=== PATIENT | male | born 1985 | race Caucasian/White ===

== ENCOUNTER 2022-03-01 18:55 | Emergency (ER) | payer OTHER, SELFPAY ==
--- NOTE | 2022-03-01 19:01 | ED.URI ---
HPI - URI/Sore Throat General Chief Complaint: Upper Respiratory Infection Stated Complaint: Fever/Cough/Headache Time Seen by Provider: 03/01/22 19:21 Source: patient and RN notes reviewed Mode of arrival: ambulatory Limitations: no limitations History of Present Illness HPI Narrative: 36-year-old male presents with concern for 3-day history of cough, chest congestion, facial pain and pressure, sinus congestion, chills, ear pressure. He reports he is taken [id number] medicines without symptom relief. He denies shortness of breath fever, nausea, diarrhea MD elicited complaint: cough and nasal congestion Related Data Allergies Allergy/AdvReac Type Severity Reaction Status Date / Time No Known Allergies Allergy Verified 03/01/22 19:19 Review of Systems Review of Systems: CONSTITUTIONAL: Reports malaise, chills. Denies sweats, or fever. EYES: Denies visual changes, redness, or discharge. ENT: Reports rhinorrhea, congestion, sinus pain, otalgia CARDIOVASCULAR: Denies chest pain, palpitations, or edema. RESPIRATORY: Reports cough. Denies dyspnea. GASTROINTESTINAL: Denies abdominal pain, nausea, vomiting, diarrhea SKIN: Denies rash or itching. MUSCULOSKELETAL: Denies myalgia. NEUROLOGIC: Denies headache. All systems reviewed & are unremarkable except as noted in HPI and below [facility] Family History Family History (Updated 07/28/18 @ 10:53 by DOCTOR UNKNOWN) Other Family history of allergic disorder Family history of cardiovascular disease Family history of malignant neoplasm Social History Social History Smoking status: Former smoker Smoking end date: 10/19/14 Alcohol intake: current Comments At time of signature, agree with nursing past medical, surgical, social and family history. There is no relevant family history pertinent to the presenting complaint Exam Narrative: GENERAL: Nontoxic appearing and in no acute distress. HEAD: Normocephalic EYES: PERRLA, conjunctivae clear ENT: Nares clear, turbinates edematous and erythematous, clear discharge. Mucous membranes moist. TM pearly chopra with dull light reflex on the left, sharp light reflex, right; no tragal tenderness. Oropharynx not erythematous without lesions. Tonsils not enlarged and without exudate, no drooling, no hoarseness, no trismus, uvula midline. NECK: Supple. No lymphadenopathy CHEST: Clear to auscultation, breath sounds equal. No wheezing, rhonchi, rales, or stridor. No respiratory distress, speaks in full sentences. HEART: Regular rate and rhythm. No murmur heard. SKIN: Warm, dry, no rash. NEURO: Alert and oriented x3. PSYCH: Normal mood and affect Course Course Emergency Course: Patient is aware of diagnosis, understands and agrees to treatment plan. Anticipatory guidance given. Patient agrees to follow-up as directed and is aware of reasons to seek care at the emergency department. Portions of this record may have been created with voice recognition software Level of Care: Express Care Visit Vital Signs Vital signs: Reviewed. MDM - URI/Sore Throat MDM Narrative Medical decision making narrative: Differential diagnosis considered: Mac virus, strep pharyngitis, allergic rhinitis, upper respiratory tract infection, sinusitis, rhinosinusitis, nasopharyngitis. viral pharyngitis, otitis media, otitis externa, pneumonia, bronchitis, viral cough syndrome, viral syndrome, and influenza. Exam findings show no acute concerns or changes; patient is non-toxic appearing and is in no distress. Patient is appropriate for outpatient treatment and follow-up. Lab Data Attestation: I reviewed the patient's lab results. Critical Care Time Critical Care Time Critical Care Time: No Discharge Plan Discharge Clinical Impression: Influenza A, Acute dysfunction of left eustachian tube Patient Disposition: Home, Self-Care Condition: Stable Instructions: Influenza (ED) Additional Instructions: Viral illness may last between 7-21 day
[2022-03-01 19:05] VITALS: BP 130/75; PULSE 82; RESP 20; TEMP 36.5; O2SAT 99
== END 2022-03-01 19:32 | disposition home or self-care (01) ==
PROVIDERS: Emergency Provider Nurse Practitioner
DX: R50.9 Fever, unspecified (principal); J10.1 Influenza due to other identified influenza virus with other respiratory manifestations; H69.92 Unspecified Eustachian tube disorder, left ear; Z87.891 Personal history of nicotine dependence
CPT/HCPCS: 87426; 87804; 99203; C9803; G0463

== ENCOUNTER 2022-03-28 12:39 | Emergency (ER) | payer OTHER, SELFPAY ==
[2022-03-28 12:50] VITALS: BP 132/78; PULSE 88; RESP 18; TEMP 37.3; O2SAT 99
--- NOTE | 2022-03-28 13:25 | ED.URI ---
HPI - URI/Sore Throat General Chief Complaint: Upper Respiratory Infection Stated Complaint: sore throat fever Source: patient and RN notes reviewed Mode of arrival: ambulatory Limitations: no limitations History of Present Illness HPI Narrative: 36 y/o male presented for complaint of sore throat, fever and body aches since yesterday. Today's temperature was 102.3. He has been taking ibuprofen and Tylenol as needed. Endorses 1 month ago he was diagnosed with the flu and has been coughing intermittently since then. Recent travel to [place]. Denies sick contacts. He is not vaccinated for COVID or flu. If he has taken 7 negative home COVID test this week. MD elicited complaint: cough Related Data Allergies Allergy/AdvReac Type Severity Reaction Status Date / Time No Known Allergies Allergy Verified 03/28/22 12:59 Review of Systems Review of Systems: CONSTITUTIONAL: Endorses malaise, chills, sweats, fever EYES: Denies visual changes, redness, or discharge ENT: Reports rhinorrhea, congestion, sore throat CARDIOVASCULAR: Denies chest pain, palpitations, edema RESPIRATORY: Reports cough, post nasal drainage. Denies dyspnea MUSCULOSKELETAL: Endorses myalgia [facility] Family History Family History Other Family history of allergic disorder Family history of cardiovascular disease Family history of malignant neoplasm Social History Social History Smoking status: Former smoker Smoking end date: 10/19/14 Alcohol intake: current Exam Narrative: GENERAL: Ill-appearing, nontoxic no acute distress. EYES: PERRLA, conjunctivae clear ENT: Mucous membranes moist. TM pearly chopra with normal light reflex bilaterally; no tragal tenderness. Oropharynx erythematous with tonsillar swelling 2+, multiple areas of white exudate, no drooling, no hoarseness, no trismus, uvula midline. No tripod positioning, muffled voice, soft palate or pharyngeal wall bulging NECK: Supple. No lymphadenopathy CHEST: Clear to auscultation, breath sounds equal. HEART: Regular rate and rhythm. No murmur heard. SKIN: Warm, dry, no rash. Course Course Emergency Course: Patient is aware of diagnosis, understands and agrees to treatment plan. Anticipatory guidance given. Patient agrees to follow-up as directed and is aware of reasons to seek care at the emergency department. Portions of this record may have been created with voice recognition software Level of Care: Express Care Visit Vital Signs Vital signs: Vital Signs Temperature 99.2 F 03/28/22 12:50 Pulse Rate 88 03/28/22 12:50 Respiratory Rate 18 03/28/22 12:50 Blood Pressure 132/78 03/28/22 12:50 Pulse Oximetry 99 03/28/22 12:50 Oxygen Delivery Room Air 03/28/22 12:50 Temperature 99.2 F 03/28/22 12:50 Pulse Rate 88 03/28/22 12:50 Respiratory Rate 18 03/28/22 12:50 Blood Pressure 132/78 03/28/22 12:50 Pulse Oximetry 99 03/28/22 12:50 Oxygen Delivery Room Air 03/28/22 12:50 reviewed MDM - URI/Sore Throat MDM Narrative Medical decision making narrative: Strep, mono, and COVID-negative. Given his physical exam, he will be treated with an antibiotic at this time for strep. He is advised on supportive treatment as well. He is stable and appropriate for outpatient treatment follow-up. verbalizes understanding Differential Diagnosis Differential diagnosis: Likely upper respiratory infection, sinusitis and viral infection Lab Data Labs: Strep Screen Presumptive Negative *(Reference Range: Negative)* Dawson Screen Negative (Reference Range: Negative) Discharge Plan Discharge Clinical Impression: Pharyngitis Qualifiers: Pharyngitis/tonsillitis etiology: unspecified etio
== END 2022-03-28 13:55 | disposition home or self-care (01) ==
PROVIDERS: Emergency Provider Nurse Practitioner Family
DX: J02.9 Acute pharyngitis, unspecified (principal); Z20.822 Contact with and (suspected) exposure to COVID-19; Z87.891 Personal history of nicotine dependence; Z28.310 Unvaccinated for COVID-19
CPT/HCPCS: 36416; 86308; 87081; 87426; 87880; 99213; C9803; G0463

== ENCOUNTER 2023-03-09 15:10 | Outpatient (CLI) | payer BC, SELFPAY ==
--- NOTE | ~2023-03-09 | XR_ITS ---
XR abdomen/kub 1V 03/09/2023 15:18 INDICATION: Constipation. Abdomen pain. TECHNIQUE: KUB COMPARISON: CT dated 06/19/2016 FINDINGS: Bowel gas pattern is normal. There is no evidence of free air, mass, organomegaly, ascites or obstruction. No abnormal calculi are seen. There are pelvic phleboliths. The bones appear intact . IMPRESSION: 1: No acute abdominal abnormality identified. Reviewed, dictated and finalized at location L.
== END 2023-03-09 15:11 | disposition home or self-care (01) ==
LOC: ANHBWCIMG 15:12
PROVIDERS: PCP Family Medicine; Visit Provider Nurse Practitioner
DX: K59.00 Constipation, unspecified (principal); K58.9 Irritable bowel syndrome, unspecified
CPT/HCPCS: 74018

== ENCOUNTER 2023-03-12 08:18 | Outpatient (CLI) | payer BC, SELFPAY ==
[2023-03-12 18:46] LABS: Alanine Aminotransferase 46 U/L (6-50); Albumin Level 4.8 g/dL (3.5-5.1); Alkaline Phosphatase 58 U/L (38-126); Anion Gap 9 mmol/L (8-16); Aspartate Amino Transferase 82 U/L (17-59); Blood Urea Nitrogen 13 mg/dL (9-20); Calcium 9.4 mg/dL (8.4-10.2); Carbon Dioxide 29 mmol/L (22-30); Chloride 102 mmol/L (98-107); Cholesterol 211 mg/dL (0-200); Estimated Glomerular Filt Rate > 60; Glucose 98 mg/dL (65-110); HDL Direct 51 mg/dL; Potassium 4.2 mmol/L (3.4-5.0); Sodium 140 mmol/L (137-145); Triglycerides 94 mg/dL (<150)
[2023-03-12 18:56] LABS: LDL Cholesterol Direct 123 mg/dL
[2023-03-12 19:21] LABS: Basophils Percent Auto 0.7 % (0.2-1.2); Eosinophils Absolute Auto 0.1 K/mm3 (0-0.3); Eosinophils Percent Auto 1.3 % (0-4.4); Hematocrit 50.3 % (42.0-52.0); Hemoglobin 16.5 g/dL (14.0-18.0); Immature Granulocyte Absolute 0.01 K/mm3 (0.00-0.031); Immature Granulocyte Percent A 0.2 % (0-0.5); Lymphocytes Absolute Auto 2.16 K/mm3 (0.9-3.2); Lymphocytes Percent Auto 46.9 % (18.3-44.2); Mean Corpuscular HGB Conc 32.8 g/dl (32-36); Mean Corpuscular Hemoglobin 28.2 pg (26-34); Mean Corpuscular Volume 85.8 fl (80-100); Mean Platelet Volume 9.8 fl (7.4-10.4); Monocytes Absolute Auto 0.2 K/mm3 (0.1-0.6); Monocytes Percent Auto 5.2 % (2.6-8.5); Neutrophils Absolute Auto 2.1 K/mm3 (1.3-6.7); Neutrophils Percent Auto 45.7 % (45.5-73.1); Platelet Count Result 301 k/mm3 (150-375); Red Blood Count 5.86 M/mm3 (4.6-6.20); Red Cell Distribution Width 13.2 % (11.5-14.5); White Blood Count 4.6 K/mm3 (4.5-10.0)
[2023-03-12 19:41] LABS: Appearance Urine Clear (Clear); Bacteria Urine Rare /hpf; Bilirubin Urine Negative (Negative); Blood Urine Negative (Negative); Color Urine Dark Yellow (Yellow); Glucose Urine UA Negative (Negative); Ketones Urine Trace mg/dL (Negative); Leukocyte Esterase Ur Negative LEU/UL (NEGATIVE); Mucus Urine Present /lpf; Need Manual Microscopic Reviewed; Nitrate Urine Negative (Negative); Non Pathogenic Casts 0-2; Protein Urine Trace mg/dL (Negative); RBC Urine 0-2 /hpf (0-2); Specific Grav Ur 1.024 (1.001-1.035); Squamous Epithelial Cell Urine None seen /hpf (Few); WBC Urine 0-5 /hpf (0-3)
[2023-03-12 19:43] LABS: Add Urine Microscopic? YES
[2023-03-17 19:48] LABS: PSA, Free 0.47 ng/mL; PSA, Total 1.1 ng/mL (<=4.0)
== END 2023-03-12 08:19 | disposition home or self-care (01) ==
LOC: ANHBWCLAB 08:19
PROVIDERS: PCP Family Medicine; Visit Provider Nurse Practitioner
DX: Z00.00 Encounter for general adult medical examination without abnormal findings (principal); K21.9 Gastro-esophageal reflux disease without esophagitis; K58.9 Irritable bowel syndrome, unspecified; K59.00 Constipation, unspecified; R35.0 Frequency of micturition; R53.83 Other fatigue; R51.9 Headache, unspecified
CPT/HCPCS: 36415; 80053; 80061; 81001; 84153; 84154; 84443; 85025

== ENCOUNTER 2023-04-10 00:14 | Day surgery (SDC) | payer BC, SELFPAY ==
[2023-04-03 13:51] VITALS: BMI 26.4
--- NOTE | 2023-04-09 12:27 | P.PNAN_ITS ---
Anes - Initial Pre Proc Eval Procedure: Operation Date: 04/10/23 13:00 Proposed Procedures p Esophagogastroduodenoscopy - Gerber Kellogg MD Date/Time: 04/09/23 12:27 Surgeon: Gerber Kellogg MD Pre Op Diagnosis: abdominal distension, GERD Patient Data Age: 37 Gender: M Height: 1.75 m Weight: 81 kg Allergies Allergy/AdvReac Type Severity Reaction Status Date / Time No Known Allergies Allergy Verified 04/10/23 11:51 Home Medications Medication Instructions Recorded Confirmed Type pantoprazole 40 mg tablet,delayed 40 mg PO QAM #30 tabs 03/25/23 04/03/23 Rx release Alpha Brain 1 tablet PO DAILY 04/03/23 04/03/23 History polyethylene glycol 3350 17 17 g PO DAILY 04/03/23 04/03/23 History gram/dose oral powder (Miralax) tumeric 100 mg-emily 150 mg-olive 1 cap PO DAILY 04/03/23 04/03/23 History 50 mg-oreg 150 mg-caprylate capsule Patient hx anesthesia problems: none Family hx anesthesia problems: none Results Review: All pre-operative results and documents have been reviewed as part of the pre- operative evaluation. PMFSH Past Medical History Medical History Abdominal bloating Anxiety Globus sensation Headache IBS (irritable bowel syndrome) RLQ discomfort Tobacco consumption Surgical History Surgical History History of appendectomy Family History Family History Grandparent Heart disease Leukemia Other Family history of allergic disorder Family history of cardiovascular disease Family history of malignant neoplasm Social History Social History Smoking status: Current every day smoker Tobacco type: e-cigarettes/vaping Smoking end date: 10/19/14 Alcohol intake: current Alcohol use details: monthly Substance use: current Substance use type: marijuana Other substance usage details: Nightly Lack of Transportation: No Lack of Food: Never True Current Housing: I Have Housing Concerned About Future Housing: No Difficulty Paying Gas/Electric Bills: No Difficulty Paying for Meds: No Currently Unemployed: No Education: High School Diploma/GED Difficulty w/ Childcare or Family Care: No Living arrangements: with family 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[employer] Gender identity (if verbalized by the patient): Male Spiritual care concerns: No Agree to blood products: Yes Anes - Eval Final PreProcedure Day of Procedure 04/09/23 12:27 Patient weight: overweight Heart: regular rate and rhythm Lungs: clear to auscultation Airway: Mallampati scale class II Neurological: alert and oriented Last oral intake: >/= 8 hours ASA classification: II Emergent: no Anesthetic plan: proceed Anesthesia type and monitoring: general GIVS and standard monitoring Results Review: All pre-operative results and documents have been reviewed as part of the pre- operative evaluation. Informed Consent: The patient's anesthetic plan and its attendant risks and benefits were discussed with the patient/family/POA. Questions were solicited and answers provided to the satisfaction of the patient/family/POA.
--- NOTE | 2023-04-09 19:59 | PM.HPGS ---
History of Present Illness History of Present Illness Consent: Risks, benefits, and alternatives have been discussed and questions answered. Patient agrees to proceed with procedure. Chief complaint: abdominal distension, GERD Narrative: Tal Dillon is a 37 year old male with several ssues. Office visit summary is: Has midabdominal bloating usually worse by the evening, has been ongoing for years but last several months has gotten worse. Taking omeprazole intermittently and when he takes this for a few weeks at a time, he think bloating may be better? He does have possible IBS as well which could be contributing and possible functional bloating component -Colonoscopy in 2017 was normal -CBC, CMP, TSH recently normal along with normal KUB -Will arrange and EGD with small bowel bx to rule out celiac, gastritis, pud, and EOE -We discussed GERD diet and stopping his caeffine supplements as that could be contributing along. We discussed smaller meals as well. Eating slow and avoid drinking through straws as that can contribute to bloating. Discussed smoking cessation as well in regards to bloating and even GERD. -Suggest Low Fodmap 4-6 weeks to identify triggers -will restart protonix 40 mg daily as well he actually did start pantoprazole and it has helped with heartburn but not the other symptoms began what bothers him the most is that sensation of bubbles in the stomach that he feels coming up towards his chest as well Review of Systems Review of Systems: All systems reviewed & are unremarkable except as noted in HPI and below PMFSH Past Medical History Medical History Abdominal bloating Anxiety Globus sensation Headache IBS (irritable bowel syndrome) RLQ discomfort Tobacco consumption Surgical History Surgical History History of appendectomy Family History Family History Grandparent Heart disease Leukemia Other Family history of allergic disorder Family history of cardiovascular disease Family history of malignant neoplasm Social History Social History Smoking status: Current every day smoker Tobacco type: e-cigarettes/vaping Smoking end date: 10/19/14 Alcohol intake: current Alcohol use details: monthly Substance use: current Substance use type: marijuana Other substance usage details: Nightly Lack of Transportation: No Lack of Food: Never True Current Housing: I Have Housing Concerned About Future Housing: No Difficulty Paying Gas/Electric Bills: No Difficulty Paying for Meds: No Currently Unemployed: No Education: High School Diploma/GED Difficulty w/ Childcare or Family Care: No Living arrangements: with family 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[employer] Gender identity (if verbalized by the patient): Male Spiritual care concerns: No Agree to blood products: Yes Meds Home Medications and Allergies Home Medications Medication Instructions Recorded Confirmed Type pantoprazole 40 mg tablet,delayed 40 mg PO QAM #30 tabs 03/25/23 04/03/23 Rx release Alpha Brain 1 tablet PO DAILY 04/03/23 04/03/23 History polyethylene glycol 3350 17 17 g PO DAILY 04/03/23 04/03/23 History gram/dose oral powder (Miralax) tumeric 100 mg-emily 150 mg-olive 1 cap PO DAILY 04/03/23 04/03/23 History 50 mg-oreg 150 mg-caprylate capsule Allergies Allergy/AdvReac Type Severity Reaction Status Date / Time No Known Allergies Allergy Verified 04/10/23 11:51 Exam Const: General: alert Orientation/consciousness: patient oriented x3 Resp: Auscultation: clear to auscultation bilaterally Cardio: Rhythm: regular rhythm GI: GI Palp: Yes Soft to palpation and No Tenderness to palpation present (GI) Neuro: General: patient oriented x3 Assessment and Plan Assess
[2023-04-10 11:52] VITALS: BP 111/73; PULSE 65; RESP 18; TEMP 36.4; O2SAT 100
[2023-04-10] MEDS: LACTATED RINGERS 1,000 ML 150 ML IV CONT (11:58)
[2023-04-10 13:09] VITALS: BP 98/61; PULSE 58; RESP 20; O2SAT 98
[2023-04-10 13:19] VITALS: BP 106/68; BP 109/76; PULSE 54; PULSE 64; RESP 15; RESP 20; O2SAT 100; O2SAT 98
== END 2023-04-10 13:38 | disposition home or self-care (01) ==
PROVIDERS: PCP Family Medicine; Visit Provider Internal Medicine Gastroenterology
PROC: 0DJ08ZZ Inspection of Upper Intestinal Tract, Via Natural or Artificial Opening Endoscopic (ICD-10-PCS; CPT 43235; principal; 2023-04-10 13:00)
DX: K21.9 Gastro-esophageal reflux disease without esophagitis (principal); F17.290 Nicotine dependence, other tobacco product, uncomplicated; F12.90 Cannabis use, unspecified, uncomplicated
CPT/HCPCS: 43239; 88305; J2704; J7120

== ENCOUNTER 2023-11-17 14:52 | Outpatient (CLI) | payer BC, SELFPAY ==
[2023-11-17 20:06] LABS: Alanine Aminotransferase 44 U/L (6-50); Albumin Level 4.8 g/dL (3.5-5.1); Alkaline Phosphatase 56 U/L (38-126); Aspartate Amino Transferase 43 U/L (17-59); Bilirubin,Total 0.7 mg/dL (0.2-1.3)
== END 2023-11-17 14:53 | disposition home or self-care (01) ==
LOC: ANHBWCLAB 14:54
PROVIDERS: PCP Family Medicine; Visit Provider Family Medicine
DX: R74.01 Elevation of levels of liver transaminase levels (principal); R14.0 Abdominal distension (gaseous); R53.83 Other fatigue; R09.89 Other specified symptoms and signs involving the circulatory and respiratory systems; K58.9 Irritable bowel syndrome, unspecified
CPT/HCPCS: 36415; 80076; 83013; 86003

== ENCOUNTER 2023-12-05 22:17 | Emergency (ER) | payer BC, SELFPAY ==
--- NOTE | ~2023-12-05 | XR_ITS ---
EXAMINATION: XR chest 2V DATE: 12/05/2023 22:40 INDICATION: Left-sided chest pain TECHNIQUE: PA and lateral views of the chest were obtained. COMPARISON: CT abdomen pelvis dated 06/19/2016 FINDINGS: The lungs are clear with no focal airspace opacities, pulmonary edema, pleural effusion or pneumothor ax. The cardiomediastinal silhouette is normal. Chronic mild anterior wedging of T11 and T12. IMPRESSION: 1. No acute cardiopulmonary disease. Reviewed, dictated and finalized at location A. NICAL PROJECT COORDINATOR
--- NOTE | 2023-12-05 22:18 | ECG_ITS ---
Measurements Intervals [place] Rate: 80 P: 37 OK: 142 QRS: 8 QRSD: 117 T: 5 QT: 342 QTc: 395 Interpretive Statements SINUS RHYTHM INCOMPLETE RIGHT BUNDLE BRANCH BLOCK [90+ ms QRS DURATION, TERMINAL R IN V1/V2, 40+ ms S IN I/aVL/V4/V5/V6] BORDERLINE ECG NO PREVIOUS ECG AVAILABLE FOR COMPARISON Electronically Signed On 12-06-2023 8:08:03 POLICY MANAGER by Andre Nur M.D.
[2023-12-05 22:20] VITALS: BP 138/101; PULSE 80; RESP 20; TEMP 36.3; O2SAT 100
[2023-12-05 22:37] LABS: Basophils Percent Auto 0.5 % (0.2-1.2); Eosinophils Absolute Auto 0.1 K/mm3 (0-0.3); Eosinophils Percent Auto 0.9 % (0-4.4); Hematocrit 49.9 % (42.0-52.0); Hemoglobin 16.9 g/dL (14.0-18.0); Immature Granulocyte Absolute 0.01 K/mm3 (0.00-0.031); Immature Granulocyte Percent A 0.2 % (0-0.5); Lymphocytes Absolute Auto 2.59 K/mm3 (0.9-3.2); Lymphocytes Percent Auto 40.3 % (18.3-44.2); Mean Corpuscular HGB Conc 33.9 g/dl (32-36); Mean Corpuscular Hemoglobin 28.2 pg (26-34); Mean Corpuscular Volume 83.3 fl (80-100); Mean Platelet Volume 9.5 fl (7.4-10.4); Monocytes Absolute Auto 0.4 K/mm3 (0.1-0.6); Monocytes Percent Auto 6.4 % (2.6-8.5); Neutrophils Absolute Auto 3.3 K/mm3 (1.3-6.7); Neutrophils Percent Auto 51.7 % (45.5-73.1); Platelet Count Result 287 k/mm3 (150-375); Red Blood Count 5.99 M/mm3 (4.6-6.20); Red Cell Distribution Width 12.7 % (11.5-14.5); White Blood Count 6.4 K/mm3 (4.5-10.0)
[2023-12-05 22:48] LABS: INR 0.9; Partial Thromboplastin Time 23.4 SECONDS (22.3-36.8); Prothrombin Time 12.8 Seconds (11.1-14.7)
[2023-12-05 22:57] LABS: Alanine Aminotransferase 68 U/L (6-50); Albumin Level 4.9 g/dL (3.5-5.1); Alkaline Phosphatase 52 U/L (38-126); Anion Gap 9 mmol/L (8-16); Aspartate Amino Transferase 42 U/L (17-59); Bilirubin,Total 0.6 mg/dL (0.2-1.3); Blood Urea Nitrogen 15 mg/dL (9-20); Calcium 9.8 mg/dL (8.4-10.2); Carbon Dioxide 27 mmol/L (22-30); Chloride 100 mmol/L (98-107); Estimated CRCL calculation 76 ml/min; Estimated Glomerular Filt Rate > 60; Glucose 92 mg/dL (65-110); Lipase 159 U/L (23-300); Potassium 3.8 mmol/L (3.4-5.0); Sodium 136 mmol/L (137-145)
[2023-12-05 23:08] LABS: Troponin I < 0.012 ng/mL (0.000-0.034)
[2023-12-05 23:15] LABS: Influenza A QL RT-PCR Negative (Negative); Influenza B QL RT-PCR Negative (Negative); RSV RNA, RT-PCR Negative (Negative); SARS-CoV-2 RNA PCR Negative (Negative)
[2023-12-06] VITALS: BP 102/64; PULSE 53; RESP 14; TEMP 36.8; O2SAT 99
--- NOTE | 2023-12-06 01:18 | ECG_ITS ---
Measurements Intervals [place] Rate: 49 P: 52 NE: 149 QRS: 18 QRSD: 112 T: 15 QT: 420 QTc: 380 Interpretive Statements SINUS BRADYCARDIA INCOMPLETE RIGHT BUNDLE BRANCH BLOCK [90+ ms QRS DURATION, TERMINAL R IN V1/V2, 40+ ms S IN I/aVL/V4/V5/V6] BORDERLINE ECG COMPARED TO ECG 12/05/2023 22:23:36 REDUCED HEART RATE, NO OTHER CHANGE Electronically Signed On 12-06-2023 8:09:33 PROVIDER SCRIBE by Andre Nur M.D.
[2023-12-06 01:22] VITALS: BP 112/75; PULSE 50; RESP 14; O2SAT 100; O2SAT 98
[2023-12-06 01:46] VITALS: BP 105/70; PULSE 50; RESP 14; O2SAT 98
[2023-12-06 01:48] LABS: Troponin I < 0.012 ng/mL (0.000-0.034)
--- NOTE | 2023-12-06 02:09 | ED.CHESTPAIN ---
HPI - Chest Pain General Chief Complaint: Chest Pain Stated Complaint: Chest pain, epigastric pain Time Seen by Provider: 12/06/23 00:53 History of Present Illness HPI narrative: 38-year-old male with history of s/p appendectomy, GERD, IBS, anxiety, abdominal bloating and globus sensation reports for evaluation for multiple medical complaints. Patient states around 9:00 p.m. this evening while he was lying on the couch, he began developing epigastric abdominal bloating and discomfort that radiated up into his chest and felt like ?my throat was closing?. He then developed numbness throughout both of his upper extremities, the back of his neck, and the bilateral sides of his face. Reports associated nausea without emesis. Denies shortness of breath, fevers, cough or congestion, vomiting or diarrhea. He he has been worked up by multiple specialists for abdominal bloating and has had 2 colonoscopies and an EGD without significant findings. States he normally takes probiotics but stopped taking them 5 days ago. Patient states his symptoms have all resolved except for his abdominal bloating which is unchanged from his baseline. He denies current chest pain or shortness of breath. Patient does state that he has had a lot of increased stressors at home. Related Data Home Medications Medication Instructions Recorded Confirmed Alpha Brain 1 tablet PO DAILY 04/03/23 04/03/23 polyethylene glycol 3350 17 17 g PO DAILY 04/03/23 04/03/23 gram/dose oral powder (Miralax) turmeric 100 mg-emily 150 1 cap PO DAILY 04/03/23 04/03/23 mg-olive 50 mg-oreg 150 mg-capryl capsule Allergies Allergy/AdvReac Type Severity Reaction Status Date / Time No Known Allergies Allergy Verified 12/05/23 22:23 Review of Systems Review of Systems: CONSTITUTIONAL: Denies fever, chills, or sweats. EYES: Denies visual changes, redness, or discharge. ENT: Denies rhinorrhea, congestion, sore throat, or otalgia. CARDIOVASCULAR: Denies chest pain, palpitations, or edema. RESPIRATORY: Denies cough or dyspnea. GASTROINTESTINAL: See HPI GENITOURINARY: Denies dysuria or hematuria. SKIN: Denies rash or itching. MUSCULOSKELETAL: Denies back pain, joint pain, or myalgia. NEUROLOGIC: See HPI PSYCHIATRIC: Denies anxiety or depression. [facility] Past Medical History Medical History Abdominal bloating Anxiety Globus sensation Headache IBS (irritable bowel syndrome) RLQ discomfort Tobacco consumption Surgical History Surgical History History of appendectomy Family History Family History Grandparent Heart disease Leukemia Other Family history of allergic disorder Family history of cardiovascular disease Family history of malignant neoplasm Social History Social History Smoking status: Current every day smoker Tobacco type: e-cigarettes/vaping Smoking end date: 10/19/14 Alcohol intake: current Alcohol use details: monthly Substance use: current Substance use type: marijuana Other substance usage details: Nightly Lack of Transportation: No Lack of Food: Never True Current Housing: I Have Housing Concerned About Future Housing: No Difficulty Paying Gas/Electric Bills: No Difficulty Paying for Meds: No Currently Unemployed: No Education: High School Diploma/GED Difficulty w/ Childcare or Family Care: No Living arrangements: with family 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 HEAD: Normocephalic, atraumatic. EYES: PERRLA and EOMI. ENT: Nares clear, no rhinorrhea or epistaxis. Mucous membranes moist.
[2023-12-06] MEDS: FAMOTIDINE 20 MG TABLET PO (02:38)
[2023-12-06] MEDS: BELLADONNA ALK/PHENOB ELIX 10 ML, MAG HYDROX/ALUMINUM HYD/SIMETH 30 ML, LIDOCAINE HCL 2... PO (02:38)
[2023-12-06 03:10] VITALS: BP 117/76; PULSE 51; RESP 21; O2SAT 99
[2023-12-06 03:12] LABS: Appearance Urine Clear (Clear); Bilirubin Urine Negative (Negative); Blood Urine Negative (Negative); Color Urine Yellow (Yellow); Glucose Urine UA Negative (Negative); Ketones Urine Negative (Negative); Leukocyte Esterase Ur Negative LEU/UL (Negative); Nitrate Urine Negative (Negative); Protein Urine Negative (Negative); Urobilinogen Urine 0.2 mg/dL (<2.0)
[2023-12-06 03:20] LABS: Add Urine Microscopic? NO
[2023-12-06 03:57] VITALS: BP 122/79; PULSE 55; RESP 18; O2SAT 96
== END 2023-12-06 04:01 | disposition home or self-care (01) ==
PROVIDERS: Student in an Organized Health Care Education/Training Program; Emergency Provider Physician Assistant; PCP Family Medicine
DX: R14.0 Abdominal distension (gaseous) (principal); R07.89 Other chest pain; R00.1 Bradycardia, unspecified; R74.01 Elevation of levels of liver transaminase levels; Z20.822 Contact with and (suspected) exposure to COVID-19; Z87.891 Personal history of nicotine dependence; I45.10 Unspecified right bundle-branch block
CPT/HCPCS: 36415; 71046; 80053; 81003; 83690; 84484; 85025; 85610; 85730; 87637; 93005; 99284; A9270

== ENCOUNTER 2024-03-15 09:57 | Emergency (ER) | payer BC, SELFPAY ==
--- NOTE | ~2024-03-15 | CT_ITS ---
CT of the Abdomen and Pelvis: Indication: Abdominal pain Technique: 2.5 mm axial scans were obtained through the abdomen and pelvis following intravenous adm inistration of 100 cc of Omnipaque 350. Dose reduction technique was used on this scan by utilizing a utomated exposure control and iterative reconstruction technique. The dose-length product (DLP) was 4 21.23 mGy-cm. Findings: Scans through the lung bases are unremarkable. The liver, spleen, pancreas, gallbladder, adrenals and kidneys are within normal limits. No evidence of aortic aneurysm. No lymphadenopathy. No bowel obstruction or bowel wall thickening. There is no evidence to suggest acute appendicitis. Images through the pelvis were performed. Urinary bladder unremarkable. No pelvic mass seen. No ascit es. Impression: No significant abnormalities seen. Reviewed, dictated and finalized at location . Impression: No significant abnormalities seen.
[2024-03-15 10:02] VITALS: BP 122/76; PULSE 75; RESP 16; TEMP 36.6; O2SAT 100
[2024-03-15 10:31] LABS: Basophils Absolute Auto 0.1 K/mm3 (0.0-0.1); Basophils Percent Auto 1.1 % (0.2-1.2); Eosinophils Absolute Auto 0.1 K/mm3 (0-0.3); Eosinophils Percent Auto 1.4 % (0-4.4); Hematocrit 50.2 % (42.0-52.0); Immature Granulocyte Absolute 0.01 K/mm3 (0.00-0.031); Immature Granulocyte Percent A 0.2 % (0-0.5); Lymphocytes Absolute Auto 2.28 K/mm3 (0.9-3.2); Lymphocytes Percent Auto 51.7 % (18.3-44.2); Mean Corpuscular HGB Conc 33.9 g/dl (32-36); Mean Corpuscular Hemoglobin 28.8 pg (26-34); Mean Corpuscular Volume 85.1 fl (80-100); Mean Platelet Volume 9.3 fl (7.4-10.4); Monocytes Absolute Auto 0.2 K/mm3 (0.1-0.6); Monocytes Percent Auto 5.4 % (2.6-8.5); Neutrophils Absolute Auto 1.8 K/mm3 (1.3-6.7); Neutrophils Percent Auto 40.2 % (45.5-73.1); Platelet Count Result 280 k/mm3 (150-375); Red Cell Distribution Width 12.7 % (11.5-14.5); White Blood Count 4.4 K/mm3 (4.5-10.0)
[2024-03-15 10:34] LABS: Appearance Urine Clear (Clear); Bilirubin Urine Negative (Negative); Blood Urine Negative (Negative); Color Urine Yellow (Yellow); Glucose Urine UA Negative (Negative); Ketones Urine Negative (Negative); Leukocyte Esterase Ur Negative LEU/UL (Negative); Nitrate Urine Negative (Negative); Protein Urine Negative (Negative); Urobilinogen Urine 0.2 mg/dL (<2.0); pH Urine 7.5 (5.0-9.0)
[2024-03-15 10:45] LABS: Add Urine Microscopic? NO
[2024-03-15 10:48] LABS: Alanine Aminotransferase 60 U/L (6-50); Alkaline Phosphatase 51 U/L (38-126); Anion Gap 5 mmol/L (4-12); Aspartate Amino Transferase 34 U/L (17-59); Blood Urea Nitrogen 17 mg/dL (9-20); Calcium 9.7 mg/dL (8.4-10.2); Carbon Dioxide 27 mmol/L (22-30); Chloride 106 mmol/L (98-107); Estimated Glomerular Filt Rate > 60; Glucose 95 mg/dL (65-110); Lipase 108 U/L (23-300); Potassium 4.7 mmol/L (3.4-5.0); Sodium 138 mmol/L (137-145)
[2024-03-15 12:01] VITALS: BP 109/81; PULSE 67; RESP 15; O2SAT 100
--- NOTE | 2024-03-15 13:56 | ED.ABDPAIN ---
HPI - Abdominal Pain General Chief Complaint: Abdominal Pain Stated Complaint: abd pain, back pain, weakness Time Seen by Provider: 03/15/24 11:17 History of Present Illness HPI narrative: 38-year-old male presents to the emergency department for evaluation suspected constipation and increased generalized weakness. patient reports he does have prior history of abdominal pain and has had multiple GI scopes previously. Patient does admit to some THC use Related Data Home Medications Medication Instructions Recorded Confirmed polyethylene glycol 3350 17 17 g PO DAILY 04/03/23 04/03/23 gram/dose oral powder (Miralax) turmeric 100 mg-emily 150 1 cap PO DAILY 04/03/23 04/03/23 mg-olive 50 mg-oreg 150 mg-capryl capsule Allergies Allergy/AdvReac Type Severity Reaction Status Date / Time No Known Allergies Allergy Verified 03/15/24 09:57 Review of Systems Review of Systems: All systems reviewed & are unremarkable except as noted in HPI and below PMFSH Past Medical History Medical History Abdominal bloating Anxiety Globus sensation Headache IBS (irritable bowel syndrome) RLQ discomfort Tobacco consumption Surgical History Surgical History History of appendectomy Family History Family History Grandparent Heart disease Leukemia Other Family history of allergic disorder Family history of cardiovascular disease Family history of malignant neoplasm Social History Social History Smoking status: Current every day smoker Tobacco type: e-cigarettes/vaping Smoking end date: 10/19/14 Alcohol intake: current Alcohol use details: monthly Substance use: current Substance use type: marijuana Other substance usage details: Nightly Lack of Transportation: No Lack of Food: Never True Current Housing: I Have Housing Concerned About Future Housing: No Difficulty Paying Gas/Electric Bills: No Difficulty Paying for Meds: No Currently Unemployed: No Education: High School Diploma/GED Difficulty w/ Childcare or Family Care: No Living arrangements: with family 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 HEAD: normocephalic, atraumatic. EYES: PERRLA/EOMI, conjunctivae clear. NOSE: Normal no drainage EARS:TMS clear with good light reflex. THROAT: Pharynx clear, no exudate. NECK: Supple. No adenopathy, no masses. RESPIRATORY: Airway patent, respirations nonlabored. Clear to auscultation bilaterally, no rales, rhonchi, wheezing. CARDIOVASCULAR: Regular rate and rhythm without murmurs rubs or gallops. ABDOMINAL: Lower abdominal tenderness to palpation MUSCULOSKELETAL: Moves all extremities. Strength/ROM intact, No edema, No calf tenderness. NEURO: Alert. Cranial nerves II through XII intact. grossly intact SKIN: Warm, dry. Normal Color PSYCHIATRIC: Normal affect/mood. Course Vital Signs Vital signs: Vital Signs Temperature 97.8 F 03/15/24 10:02 Pulse Rate 75 03/15/24 10:02 Respiratory Rate 16 03/15/24 10:02 Blood Pressure 122/76 03/15/24 10:02 Pulse Oximetry 100 03/15/24 10:02 Oxygen Delivery Room Air 03/15/24 10:02 Temperature 97.8 F 03/15/24 15:19 Pulse Rate 61 03/15/24 15:19 Respiratory Rate 15 03/15/24 15:19 Blood Pressure 120/71 03/15/24 15:19 Pulse Oximetry 99 03/15/24 15:19 Oxygen Delivery Room Air 03/15/24 10:02 MDM - Abdominal Pain MDM Narrative Medical decision making narrative: 38-year-old male presents emergency department for evaluation of increased generalized weakness and suspected constipation. Patien
[2024-03-15] MEDS: KETOROLAC 15 MG/ML VIAL (*BKC) IV PUSH (15:11)
[2024-03-15] MEDS: DICYCLOMINE HCL INJ 20 MG/2 ML VIAL IM (15:15)
[2024-03-15 15:19] VITALS: BP 120/71; PULSE 61; RESP 15; TEMP 36.6; O2SAT 99
== END 2024-03-15 15:20 | disposition home or self-care (01) ==
PROVIDERS: Emergency Provider Emergency Medicine; PCP Family Medicine
DX: R10.9 Unspecified abdominal pain (principal); K58.9 Irritable bowel syndrome, unspecified; Z87.891 Personal history of nicotine dependence; Z79.899 Other long term (current) drug therapy
CPT/HCPCS: 36415; 74177; 80053; 81003; 83690; 85025; 96372; 96374; 99284; J0500; J1885; Q9967

== ENCOUNTER 2024-05-16 07:35 | Outpatient (CLI) | payer BC, SELFPAY ==
[2024-05-16 18:46] LABS: Hematocrit 48.2 % (42.0-52.0); Mean Corpuscular HGB Conc 33.2 g/dl (32-36); Mean Corpuscular Hemoglobin 29.2 pg (26-34); Mean Platelet Volume 10.8 fl (7.4-10.4); Platelet Count Result 307 k/mm3 (150-375); Red Blood Count 5.48 M/mm3 (4.6-6.20); Red Cell Distribution Width 13.5 % (11.5-14.5); White Blood Count 4.7 K/mm3 (4.5-10.0)
[2024-05-16 19:01] LABS: Cholesterol 215 mg/dL (0-200); HDL Direct 58 mg/dL; Triglycerides 87 mg/dL (<150)
[2024-05-16 19:11] LABS: LDL Cholesterol Direct 110 mg/dL
[2024-05-16 19:24] LABS: Vitamin D 25 Hydroxy 36.8 ng/mL
== END 2024-05-16 07:36 | disposition home or self-care (01) ==
LOC: ANHBWCLAB 07:37
PROVIDERS: PCP Family Medicine; Visit Provider Family Medicine
DX: F41.9 Anxiety disorder, unspecified (principal); K21.9 Gastro-esophageal reflux disease without esophagitis; K58.9 Irritable bowel syndrome, unspecified; K59.00 Constipation, unspecified; R14.0 Abdominal distension (gaseous); R51.9 Headache, unspecified; R53.83 Other fatigue; R74.01 Elevation of levels of liver transaminase levels
CPT/HCPCS: 36415; 80061; 82306; 85027

== ENCOUNTER 2024-06-23 09:42 | Outpatient (CLI) | payer BC, SELFPAY ==
[2024-07-05 00:48] LABS: Pancreatic Elastase, Stool >500 mcg/g
== END 2024-06-23 09:43 | disposition home or self-care (01) ==
PROVIDERS: PCP Family Medicine; Visit Provider Family Medicine
DX: R10.31 Right lower quadrant pain (principal); R14.0 Abdominal distension (gaseous); R53.83 Other fatigue
CPT/HCPCS: 82653

== ENCOUNTER 2025-09-01 09:34 | Outpatient (CLI) | payer BC, SELFPAY ==
--- NOTE | 2025-09-01 09:40 | EST_ITS ---
Patient Info Name: Tal Dillon Age: 40 years : 1985 Gender: Male Ht: 69 in Wt: 185 lbs BSA: 2.04 m2 HR: 58 bpm BP: 149 / 79 mmHg Exam Date: 09/01/2025 9:48 AM Patient Status: O Admit Date: 09/01/2025 Exam Type: CA stress echo Treadmill exercise stress echocardiogram is performed. Staff Referring Physician: Javier Aviles Attending Provider: Javier Aviles Exercise Technologist: Vilma Malin Exercise Physician: Maninder Chowdary DO Summary 1. 1. Negative Ilia exercise stress test for ischemic ST changes by ECG criteria. 2. 2. Good functional capacity, achieving 12 METs of workload. 3. 3. Baseline hypertension. 4. 4. Appropriate HR response to exercise. 5. 5. Appropriate HR recovery at 1 minute post exercise. 6. 6. Negative stress echocardiogram for ischemia by wall motion analysis. 7. 7. Patient informed of the above results. Stress Echo Findings Left Ventricle Appropriate increase in LV endocardial thickening with systole. Appropriate augmentation of contractility with systole. No wall motion abnormality. Left Ventricle Normal LV systolic function, no wall motion abnormality. Protocol: Ilia Stress ECG Details Stage: REST Duration (min): 0 min : 56 sec Speed (mph): 0.0 Grade (%): 0 HR (bpm): 57 SBP (mmHg): 149 DBP (mmHg): 79 METS: --- Stage: REST Duration (min): 7 min : 2 sec Speed (mph): 0.0 Grade (%): 0 HR (bpm): 72 SBP (mmHg): 149 DBP (mmHg): 79 METS: --- Stage: STAGE 1 Duration (min): 1 min : 0 sec Speed (mph): 1.7 Grade (%): 10 HR (bpm): 96 SBP (mmHg): 149 DBP (mmHg): 79 METS: --- Stage: STAGE 1 Duration (min): 2 min : 0 sec Speed (mph): 1.7 Grade (%): 10 HR (bpm): 97 SBP (mmHg): 149 DBP (mmHg): 79 METS: --- Stage: STAGE 1 Duration (min): 3 min : 0 sec Speed (mph): 1.7 Grade (%): 10 HR (bpm): 96 SBP (mmHg): 168 DBP (mmHg): 69 METS: --- Stage: STAGE 2 Duration (min): 1 min : 0 sec Speed (mph): 2.5 Grade (%): 12 HR (bpm): 104 SBP (mmHg): 168 DBP (mmHg): 69 METS: --- Stage: STAGE 2 Duration (min): 2 min : 0 sec Speed (mph): 2.5 Grade (%): 12 HR (bpm): 106 SBP (mmHg): 142 DBP (mmHg): 55 METS: --- Stage: STAGE 2 Duration (min): 3 min : 0 sec Speed (mph): 2.5 Grade (%): 12 HR (bpm): 113 SBP (mmHg): 142 DBP (mmHg): 55 METS: --- Stage: STAGE 3 Duration (min): 1 min : 0 sec Speed (mph): 3.4 Grade (%): 14 HR (bpm): 121 SBP (mmHg): 142 DBP (mmHg): 55 METS: --- Stage: STAGE 3 Duration (min): 2 min : 0 sec Speed (mph): 3.4 Grade (%): 14 HR (bpm): 126 SBP (mmHg): 142 DBP (mmHg): 55 METS: --- Stage: STAGE 3 Duration (min): 3 min : 0 sec Speed (mph): 3.4 Grade (%): 14 HR (bpm): 133 SBP (mmHg): 142 DBP (mmHg): 55 METS: --- Stage: STAGE 4 Duration (min): 1 min : 0 sec Speed (mph): 4.2 Grade (%): 16 HR (bpm): 160 SBP (mmHg): 142 DBP (mmHg): 55 METS: --- Stage: STAGE 4 Duration (min): 1 min : 31 sec Speed (mph): 0.0 Grade (%): 0 HR (bpm): 163 SBP (mmHg): 142 DBP (mmHg): 55 METS: --- Stage: RECOVERY Duration (min): 0 min : 28 sec Speed (mph): 0.0 Grade (%): 0 HR (bpm): 151 SBP (mmHg): 159 DBP (mmHg): 60 METS: --- Stage: RECOVERY Duration (min): 1 min : 28 sec Speed (mph): 0.0 Grade (%): 0 HR (bpm): 125 SBP (mmHg): 159 DBP (mmHg): 60 METS: --- Stage: RECOVERY Duration (min): 2 min : 28 sec Speed (mph): 0.0 Grade (%): 0 HR (bpm): 105 SBP (mmHg): 159 DBP (mmHg): 60 METS: --- Stage: RECOVERY Duration (min): 3 min : 28 sec Speed (mph): 0.0 Grade (%): 0 HR (bpm): 92 SBP (mmHg): 171 DBP (mmHg): 46 METS: --- Stage: RECOVERY Duration (min): 4 min : 28 sec Speed (mph): 0.0 Grade (%): 0 HR (bpm): 87 SBP (mmHg): 171 DBP (mmHg): 46 METS: --- Stage: RECOVERY Duration (min): 5 min : 4 sec Speed (mph): 0.0 Grade (%): 0 HR (bpm): 87 SBP (mmHg): 127 DBP (mmHg): 53 METS: --- Rest HR: 72 bpm Peak HR: 165 bpm Rest Sys BP: 149 mmHg Peak Sys BP: 171 mmHg Max Pred HR: 182 bpm % Max Pred HR: 91 % Target HR: 155 bpm Max RPP: 28,215 bpm*mmHg Tran Score: 3 Termination Reason: Reached target heart rate or workload Cardiac Symptoms: Shortness of breath Max ST Seg Deviation: 2 mm Total Time: 10 min : 31 sec Rest [place] BP: 79 mmHg Peak [place] BP: 46 mmHg Angina Score: None Total METS: 12.1 Resting ECG Sinus rhythm, IRBBB. Stress ECG No ST changes. Arrhythmias None. Report Signatures Stress ECG Echo
[2025-09-01 10:14] LABS: Hematocrit 49.3 % (42.0-52.0); Hemoglobin 16.8 g/dL (14.0-18.0); Immature Granulocyte Percent A 0.0 % (0-0.5); Lymphocytes Absolute Auto 2.14 K/mm3 (0.9-3.2); Mean Corpuscular HGB Conc 34.1 g/dl (32-36); Mean Corpuscular Hemoglobin 28.7 pg (26-34); Mean Corpuscular Volume 84.3 fl (80-100); Nucleated Red Blood Cells Absolute Auto 0.000 K/mm3 (0.0-0.012); Nucleated Red Blood Cells Perc 0.0 % (0.0-0.2); Platelet Count Result 307 k/mm3 (150-375); Red Blood Count 5.85 M/mm3 (4.6-6.20); White Blood Count 4.7 K/mm3 (4.5-10.0)
[2025-09-01 11:15] LABS: Hepatitis B Surface Antigen Negative (Negative)
[2025-09-01 11:21] LABS: HAV RESULT Negative (Negative); Hepatitis B Core IgM Result Negative (Negative)
[2025-09-01 14:21] LABS: Alanine Aminotransferase 55 U/L (6-50); Albumin Level 4.6 g/dL (3.5-5.1); Alkaline Phosphatase 51 U/L (38-126); Anion Gap 12 mmol/L (4-12); Aspartate Amino Transferase 71 U/L (17-59); Bilirubin,Total 1.0 mg/dL (0.2-1.3); Blood Urea Nitrogen 13 mg/dL (9-20); Calcium 9.4 mg/dL (8.4-10.2); Carbon Dioxide 19 mmol/L (22-30); Chloride 106 mmol/L (98-107); Cholesterol 224 mg/dL (0-200); Estimated Glomerular Filt Rate > 60; Glucose 83 mg/dL (65-110); HDL Direct 63 mg/dL; Potassium 4.3 mmol/L (3.4-5.0); Sodium 137 mmol/L (137-145); Total Protein 7.9 g/dL (6.3-8.2); Triglycerides 116 mg/dL (<150)
[2025-09-01 14:32] LABS: Troponin I < 0.012 ng/mL (0.000-0.034)
[2025-09-05 12:08] LABS: ALT (SGPT) P5P 51 IU/L (0-55); AST (SGOT) P5P 27 IU/L (0-40); Alpha 2-Macroglobulins, Qn 272 mg/dL (110-276); Bilirubin, Total 0.6 mg/dL (0.0-1.2); Cholesterol, Total 213 mg/dL (100-199); GGT 68 IU/L (0-65); Glucose 83 mg/dL (70-99); Triglycerides 141 mg/dL (0-149)
[2025-09-05 14:09] LABS: Free Testosterone (Direct) 12.6 pg/mL (8.7-25.1)
== END 2025-09-01 09:35 | disposition home or self-care (01) ==
LOC: ANHCARD 09:36
PROVIDERS: PCP Family Medicine; Visit Provider Family Medicine
DX: Z00.00 Encounter for general adult medical examination without abnormal findings (principal); R07.89 Other chest pain; K21.9 Gastro-esophageal reflux disease without esophagitis; R74.01 Elevation of levels of liver transaminase levels; K58.2 Mixed irritable bowel syndrome; R53.83 Other fatigue
CPT/HCPCS: 36415; 80053; 80061; 80074; 82172; 82247; 82306; 82465; 82947; 82977; 83010; 83883; 84402; 84403; 84450; 84460; 84478; 84484; 85025; 93351